=== PATIENT | female | born 1975 | race Two or more races ===

== ENCOUNTER 2020-02-24 19:11 | Inpatient (IN) | payer OTHER ==
[2020-02-24 19:23] VITALS: BMI 25.8
[2020-02-24] MEDS ORDERED: SODIUM CHLORIDE 1,000 ML IV STA (19:23)
[2020-02-24] MEDS ORDERED: ACETAMINOPHEN 1000 MG/100 ML VIAL (NON FORMULARY) IVPB ONE (19:23)
--- NOTE | 2020-02-24 19:23 | PDOC ---
Rapid Medical Evaluation Chief Complaint: Respiratory Time Seen by Provider: 02/24/20 19:20 Medical Evaluation: 02/24/20 19:20 Pt presents for evaluation of fever, body aches and headaches for one week. States had a COVID antibody test that was negative. Recent travel to [place] via car. Exam: VSS, appears uncomfortable Orders: labs, COVID Pt to proceed to the ER for further evaluation Discharge Disposition - Diagnosis Fever Qualifiers: Fever type: unspecified Qualified Code(s): R50.9 - Fever, unspecified - Referrals - Patient Instructions - Post Discharge Activity
--- NOTE | 2020-02-24 20:14 | PDOC ---
History of Present Illness - General Chief Complaint: Vomiting/Diarrhea Stated Complaint: FEVER Time Seen by Provider: 02/24/20 19:20 History Source: Patient Exam Limitations: No Limitations - History of Present Illness Initial Comments: 02/24/20 20:14 44y previously healthy F presenting w 5d subjective fever, dry cough, nausea/vomiting, body aches, mild epigastric pain, headaches, diarrhea. Taking tylenol w/o relief. Had recent negative COVID antibody test. Recent travel to [place], no known covid exposures. Denies chest pain, SOB, dysuria, rectal bleeding. Past History - Medical History Allergies/Adverse Reactions: Allergies Allergy/AdvReac Type Severity Reaction Status Date / Time No Known Allergies Allergy Verified 02/24/20 19:23 COPD: No - Psycho-Social/Smoking History Smoking History: Never smoked - Substance Abuse Hx (Audit-C & DAST Scrn) How often the patient has a drink containing alcohol: Never Score: In Men: 4 or > Positive; In Women: 3 or > Positive: 0 Screen Result (Pos requires Nsg. Audit-10AR): Negative Review of Systems - Review of Systems Constitutional: Yes: Chills, Fever HEENTM: No: Eye Pain, Nose Congestion Respiratory: Yes: Cough. No: Shortness of Breath Cardiac (ROS): No: Chest Pain, Palpitations ABD/GI: Yes: Diarrhea, Nausea, Vomiting. No: Abdominal Distended : No: Burning, Dysuria Musculoskeletal: Yes: Muscle Pain. No: Back Pain, Joint Pain Integumentary: No: Bruising, Flushing Neurological: Yes: Headache. No: Seizure Psychiatric: No: Anxiety, Depression Endocrine: No: Intolerance to Cold, Intolerance to Heat Hematologic/Lymphatic: No: Anemia, Blood Clots *Physical Exam - Vital Signs Last Vital Signs Temp Pulse Resp BP Pulse Ox 98.2 F 83 18 107/66 100 02/24/20 19:19 02/24/20 19:19 02/24/20 19:19 02/24/20 19:19 02/24/20 19:19 - Physical Exam General Appearance: Yes: Nourished, Appropriately Dressed, Mild Distress HEENT: positive: EOMI, LYLE, Normal Voice, Hearing Grossly Normal. negative: Scleral Icterus (R), Scleral Icterus (L), Nasal Congestion Respiratory/Chest: positive: Lungs Clear, Normal Breath Sounds. negative: Chest Tender, Respiratory Distress, Crackles, Rales, Rhonchi, Stridor, Wheezing Cardiovascular: positive: Regular Rhythm, Regular Rate, S1, S2. negative: Edema, Murmur Gastrointestinal/Abdominal: positive: Normal Bowel Sounds, Tender (mild epigastric), Flat, Soft. negative: Organomegaly Musculoskeletal: negative: CVA Tenderness (R), CVA Tenderness (L) Extremity: negative: Pedal Edema Integumentary: positive: Normal Color, Dry, Warm Neurologic: positive: Fully Oriented, Alert, Normal Mood/Affect, Normal Response, Responsive. negative: Confused, Disoriented ED Treatment Course - LABORATORY CBC & Chemistry Diagram: 02/24/20 20:25 02/24/20 20:25 Medical Decision Making - Medical Decision Making 02/24/20 20:53 CXR - yas fluffy infiltrates EKG - NSR, HR 67, QTc 414, no ST changes --- 44y previously healthy F presenting w 5d subjective fever, dry cough, ashlee sea/vomiting, body aches, mild epigastric pain, headaches, diarrhea. Likely covid PNA/gastroenteritis. No evidence of UTI Desat down to 93% RA while ambulating. Given 1L NS, tylenol, zofran, pepcid, azithromcyin, rocephin. Started 2L NC Admit m/s hospitalist for suspected covid, acute respiratory failure requiring supplemental O2 PCP Magdalene Discharge - Discharge Information Problems reviewed: Yes Clinical Impression/Diagnosis: Suspected 2019 novel coronavirus infection Condition: Stable - Follow up/Referral Referrals: Ashley Pillai [Primary Care Provider] - CallBack Reminder: covid results - Patient Discharge Instructions - Post Discharge Activity
[2020-02-24] MEDS ORDERED: ONDANSETRON 4 MG/2 ML VIAL IVPUSH ONE (20:25)
[2020-02-24] MEDS ORDERED: FAMOTIDINE 20 MG/50 ML IVPB 20 MG/50 ML MG IVPB ONE ×2 (20:27→20:53)
[2020-02-24] MEDS ORDERED: ACETAMINOPHEN INJECTION 100 ML IVPB ONE (20:53)
[2020-02-24 21:05] LABS: BASO % 0.2 % (0-2.0); HEMATOCRIT 30.7 % (32.4-45.2); HEMOGLOBIN 9.6 GM/dL (10.7-15.3); LYMPH % 12.3 % (8-40); MCH 21.7 pg (25.7-33.7); MCHC 31.2 g/dl (32.0-36.0); MEAN CELL VOLUME 69.5 fl (80-96); MEAN PLT VOLUME 9.9 fl (7.5-11.1); MONO % 6.6 % (3.8-10.2); NEUT % 80.9 % (42.8-82.8); PLATELET COUNT 169 K/MM3 (134-434); RBC 4.41 M/mm3 (3.60-5.2); WHITE BLOOD COUNT 4.3 K/mm3 (4.0-10.0)
[2020-02-24 21:23] LABS: ALBUMIN 3.3 g/dl (3.4-5.0); BILIRUBIN,TOTAL 0.2 mg/dL (0.2-1); BLOOD UREA NITROGEN 6.5 mg/dL (7-18); CALCIUM 8.3 mg/dL (8.5-10.1); CREATININE 0.6 mg/dL (0.55-1.3); POTASSIUM 4.1 mmol/L (3.5-5.1); TOT PROT 6.7 g/dl (6.4-8.2)
[2020-02-24 21:47] LABS: ANISOCYTOSIS 2+; MACROCYTOSIS 0; OVALOCYTE 1+; PLATELET ESTIMATE NORMAL; TEAR DROP CELLS 1+
--- NOTE | 2020-02-24 22:48 | PDOC ---
Documentation entered by Ondina Yadav SCRIBE, acting as scribe for Sheridan Garcia MD. Sheridan Garcia MD: This documentation has been prepared by the Leif giles Brenda, SCRIBE, under my direction and personally reviewed by me in its entirety. I confirm that the documentation accurately reflects all work, treatment, procedures, and medical decision making performed by me. Attending Attestation - Resident Resident Name: Kofi Guerrero - ED Attending Attestation I have performed the following: I have examined & evaluated the patient, The case was reviewed & discussed with the resident, I agree w/resident's findings & plan, Exceptions are as noted - HPI HPI: 02/24/20 20:28 The patient is a 44 year old female with no PMH of who presents to the ED for evaluation of 5 days of subjective fever, vomitting, diarrhea, body aches and a dry cough. The patient is also endorsing epigastric abdominal pain and headaches. She reports recently visiting [place] but denies any sick contacts. Notes taking Tylenol around the clock (last at 12:00pm), to no relief. Allergies: NKA - Physicial Exam PE: 02/24/20 22:02 GENERAL: A/Ox4, mild distress, answers questions appropriately, wearing hijab, appears uncomfortable, accompanied by significant other at bedside CARDIOVASCULAR: regular and a bit tachycardic, no MGR, strong peripheral pulses, capillary refill <2 seconds, extremities wwp, no edema HEENT: no posterior pharyngeal erythema or tonsillar swelling or exudates LUNGS/RESPIRATORY: tachypneic, lungs a bit course without focal decreased breath sounds GI/ABDOMEN: symmetric [id number], normoactive BS, soft, no ttp, no midline pulsatile masses : no CVA tenderness MSK/EXTREMITIES: no muscle atrophy, no acute deformity SKIN: warm and dry, no pallor, no jaundice, no rash, no pathologic-appearing bruising, no skin breakdown, no cuts, no lesions NEUROLOGICAL: GCS 15, CN II-XII grossly intact, 5/5 strength proximally and distally, no facial droop - Medical Decision Making 02/24/20 22:46 Patient presents with fever, SOB, cough, c/f COVID-19 in the setting of COVID-19 pandemic. Initial Vital Signs Temp Pulse Resp BP Pulse Ox 98.2 F 83 18 107/66 100 02/24/20 19:19 02/24/20 19:19 02/24/20 19:19 02/24/20 19:19 02/24/20 19:19 DDX IBNLT: likely COVID-19 with c/f sequelae. Likely gastroenteritis. Superimposed bacterial PNA considered as well. COPD/asthma/CHF exacerbation or other underlying lung disease possible contributing factor. Less likely influenza, bronchitis, other viral URI, laryngitis, tracheitis, etc. W/U ordered: Labs as noted below, COVID-19 swab, EKG, CXR EKG: Reviewed; results as noted in ECG Review section. CXR: Diffuse bilateral patchy consolidations without focal or lobar consolidation. Laboratory Tests 02/24/20 02/24/20 02/24/20 20:25 20:25 20:25 WBC 4.3 RBC 4.41 Hgb 9.6 L Hct 30.7 L MCV 69.5 L MCH 21.7 L MCHC 31.2 L RDW 21.0 H Plt Count 169 MPV 9.9 Absolute Neuts (auto) 3.4 Neutrophils % 80.9 Lymphocytes % 12.3 Monocytes % 6.6 Eosinophils % 0.0 Basophils % 0.2 Nucleated RBC % 0 Hypochromia 1+ Platelet Estimate Normal Polychromasia 1+ Poikilocytosis 1+ Anisocytosis 2+ Microcytosis 1+ Macrocytosis 0 Tear Drop Cells 1+ Ovalocytes 1+ Sodium 138 Potassium 4.1 Chloride 104 Carbon Dioxide 26 Anion Gap 9 BUN 6.5 L Creatinine 0.6 Est GFR (CKD-EPI)AfAm 126.69 Est GFR (CKD-EPI)NonAf 109.31 Random Glucose 95 Calcium 8.3 L Ferritin 37.8 Total Bilirubin 0.2 AST 26 ALT 19 Alkaline Phosphatase 84 LD Total 282 H C-Reactive Protein 9.5 H Total Protein 6.7 Albumin 3.3 L Urine Color Urine Appearance Urine pH Ur Specific [place] Urine Protein Urine Glucose (UA) Urine Ketones Urine Blood Urine Nitrite Urine Bilirubin Urine Urobilinogen Ur Leukocyte Esterase Urine HCG, Qual COVID-19 (BRANDEN) Detected H 02/24/20 22:37 WBC RBC Hgb Hct MCV MCH MCHC RDW Plt Count MPV Absolute Neuts (auto) Neutrophils % Lymphocytes % Monocytes % Eosinophils % Basophils % Nucleated RBC % Hypochromia Platelet Estimate Polychromasia Poikilocytosis Anisocytosis Microcytosis Macrocytosis Tear Drop Cells Ovalocytes Sodium Potassium Chloride Carbon Dioxide Anion Gap BUN Creatinine Est GFR (CKD-EPI)AfAm Est GFR (CKD-EPI)NonAf Random Glucose Calcium Ferritin Total Bilirubin AST ALT Alkaline Phosphatase LD Total C-Reactive Protein Total Protein Albumin Urine Color Yellow Urine Appearance Clear Urine pH 7.0 Ur Specific [place] 1.008 L Urine Protein Negative Urine Glucose (UA) Negative Urine Ketones Negative Urine Blood Negative Urine Nitrite Negative Urine Bilirubin Negative Urine Urobilinogen 0.2 Ur Leukocyte Esterase Negative Urine HCG, Qual Negative COVID-19 (BRANDEN) 02/24/20 23:26 New baseline hypoxia, persistent respiratory distress despite tx. The Pt is high-risk for home decompensation and is unsafe for discharge at this time. They require further hospital observation, workup, and treatment. Microblog sent to [facility] for admission. Patient high risk for COVID-19 transmission and noted as such on admission orders and in pass-down. Heart Score/ECG Review #1 Sinus rhythm, rate 67, normal axis and intervals, no ischemic ST-T changes Discharge - Discharge Information Problems reviewed: Yes Clinical Impression/Diagnosis: Suspected 2019 novel coronavirus infection Condition: Guarded - Admission Yes - Follow up/Referral - Patient Discharge Instructions - Post Discharge Activity
[2020-02-24 22:50] LABS: URINE APPEARANCE CLEAR; URINE BILIRUBIN NEGATIVE (NEGATIVE); URINE COLOR YELLOW; URINE GLUCOSE (UA) NEGATIVE (NEGATIVE); URINE KETONE NEGATIVE (NEGATIVE); URINE LEUK ESTERASE NEGATIVE (NEGATIVE); URINE NITRITE NEGATIVE (NEGATIVE); URINE PROTEIN NEGATIVE (NEGATIVE); URINE UROBILINOGEN 0.2 mg/dL (0.2-1.0)
[2020-02-24 22:56] LABS: HCG,QUALITATIVE URINE Negative
[2020-02-24] MEDS ORDERED: CEFTRIAXONE 1 GM in DEXTROSE 5%-WATER - 100 ML IVPB ONE (23:57)
[2020-02-24] MEDS ORDERED: AZITHROMYCIN IVPB 500 MG in DEXTROSE 5%-WATER - 250 ML IVPB ONE (23:57)
[2020-02-24] MEDS ORDERED: CEFTRIAXONE 1 GM/50 ML BAG ONE (23:59)
[2020-02-25] MEDS ORDERED: AZITHROMYCIN IVPB 500 MG/250 ML BAG IVPB ONE
--- NOTE | 2020-02-25 02:04 | HP ---
CHIEF COMPLAINT: PCP: HISTORY OF PRESENT ILLNESS: 44F w/ pmh of chronic anemia(takes iron), presenting to [facility] for complaint for all over bodyc aches w/a bitemporal MORGAN x2wk. Worsening pain. Has had poor PO intake. Has seen PCP, and given antibiotics(azithromycin). Was negative for COVID Ab on 02/18/20. Denies SOB, cough, fever. Has some chest pain, having trouble taking deep breaths. Has SOB with walking and going up stairs. Has had diarrhea, multiple times a day, usually after eating. Has had Tmax 38C at home. Has preserved sense of taste and smell. Low appetite. Denies sick contacts. Travelled to [place] three weeks prior, stayed one week. Was attending a wedding ~100 ppl, rarely wore a mask and did not stay 6ft apart. 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 Did not get flu shot. C-scope at 18s y/o w/o notable findings. Translation provided by adult son at bedside. ER course was notable for: (1) 93% pulse ox on ambulation (2) Hgb 9.6(MCV 69.5), ferritin 37.8, LDH 282 (3) UA: neg (4) CXR: unoffical read bibasilar infiltrates..COVID? Recent Travel: 8hr drive to [place] PAST MEDICAL HISTORY: as above PAST SURGICAL HISTORY: abdominoplasty, csection Social History: Smoking: Hookah 1-2x weekly, last 2ys Alcohol: Drugs: Allergies No Known Allergies Allergy (Verified 02/24/20 19:23) HOME MEDICATIONS: REVIEW OF SYSTEMS CONSTITUTIONAL: fever, chills, weakness, malaise, loss of appetite Absent: diaphoresis, weight change HEENT: Absent: rhinorrhea, nasal congestion, throat pain, throat swelling, difficulty swallowing, mouth swelling, ear pain, eye pain, visual changes CARDIOVASCULAR: Absent: chest pain, syncope, palpitations, irregular heart rate, lightheadedness, peripheral edema RESPIRATORY: nonproductive cough, SOB, MCRAE Absent: orthopnea, wheezing, stridor, hemoptysis GASTROINTESTINAL: nausea, vomiting, diarrhea Absent: abdominal pain, abdominal distension, constipation, melena, hematochezia GENITOURINARY: Absent: dysuria, frequency, urgency, hesitancy, hematuria, flank pain, genital pain MUSCULOSKELETAL: muscle aches, joint pain Absent:joint swelling, back pain, neck pain SKIN: Absent: rash, itching, pallor HEMATOLOGIC/IMMUNOLOGIC: Absent: easy bleeding, easy bruising, lymphadenopathy, frequent infections ENDOCRINE: Absent: unexplained weight gain, unexplained weight loss, heat intolerance, cold intolerance NEUROLOGIC: Absent: headache, focal weakness or paresthesias, dizziness, unsteady gait, seizure, mental status changes, bladder or bowel incontinence PSYCHIATRIC: Absent: anxiety, depression, suicidal or homicidal ideation, hallucinations. PHYSICAL EXAMINATION Vital Signs - 24 hr 02/24/20 19:19 Temperature 98.2 F Pulse Rate 83 Respiratory 18 Rate Blood Pressure 107/66 O2 Sat by Pulse 100 Oximetry (%) GENERAL: Awake, alert, and fully oriented. Lethargic appearing HEAD: Normal with no signs of trauma. EYES: sclera anicteric, conjunctival pallor EARS, NOSE, THROAT: Ears normal, nares patent, oropharynx clear without exudat es. Moist mucous membranes. NECK: Normal range of motion, supple without lymphadenopathy, JVD, or masses. LUNGS: coarse basilar crackles bilaterally. No wheezes. No accessory muscle use. Speaking full sentences on RA. HEART: Regular rate and rhythm, normal S1 and S2 without murmur, rub or gallop. ABDOMEN: Soft, nontender, not distended, normoactive bowel sounds, no guarding, no rebound, no masses. No hepatomegaly or splenomegaly. MUSCULOSKELETAL: Normal range of motion at all joints. No bony deformities or tenderness. No CVA tenderness. UPPER EXTREMITIES: 2+ pulses, warm, well-perfused. No cyanosis. No clubbing. No peripheral edema. LOWER EXTREMITIES: 2+ pulses, warm, well-perfused. No calf tenderness. No peripheral edema. NEUROLOGICAL: Normal speech. Laboratory Results - last 24 hr 02/24/20 02/24/20 02/24/20 20:25 20:25 22:37 WBC 4.3 RBC 4.41 Hgb 9.6 L Hct 30.7 L MCV 69.5 L MCH 21.7 L MCHC 31.2 L RDW 21.0 H Plt Count 169 MPV 9.9 Absolute Neuts (auto) 3.4 Neutrophils % 80.9 Lymphocytes % 12.3 Monocytes % 6.6 Eosinophils % 0.0 Basophils % 0.2 Nucleated RBC % 0 Hypochromia 1+ Platelet Estimate Normal Polychromasia 1+ Poikilocytosis 1+ Anisocytosis 2+ Microcytosis 1+ Macrocytosis 0 Tear Drop Cells 1+ Ovalocytes 1+ Sodium 138 Potassium 4.1 Chloride 104 Carbon Dioxide 26 Anion Gap 9 BUN 6.5 L Creatinine 0.6 Est GFR (CKD-EPI)AfAm 126.69 Est GFR (CKD-EPI)NonAf 109.31 Random Glucose 95 Calcium 8.3 L Ferritin 37.8 Total Bilirubin 0.2 AST 26 ALT 19 Alkaline Phosphatase 84 LD Total 282 H Total Protein 6.7 Albumin 3.3 L Urine Color Yellow Urine Appearance Clear Urine pH 7.0 Ur Specific [place] 1.008 L Urine Protein Negative Urine Glucose (UA) Negative Urine Ketones Negative Urine Blood Negative Urine Nitrite Negative Urine Bilirubin Negative Urine Urobilinogen 0.2 Ur Leukocyte Esterase Negative Urine HCG, Qual Negative ASSESSMENT/PLAN: 44F w/ pmh of chronic anemia(takes iron), presenting to [facility] for complaint for all over body aches w/a bitemporal MORGAN, nonproductive cough with fever. Has had recent travel to [place] to attend a wedding where she did adhere to social distancing. Desaturating to 93% w/ ambulation. Imaging showing b/l inflammation. Admitted for possible COVID #hypoxia w/ mild respiratory distress --possibly 2/2 COVID and/or b/l PNA > 93% pulse ox on ambulation > CXR: final read pending - abx regimen: azithro + ceftriaxone - albuterol PRN - zinc, vit C - O2 PRN for goal >90% - fu covid inflammatory markers(d-dimer, LDH, ferritin) - ID consult(Familia): --recs pending #chronic microcytic anemia --pt has intermittently been on iron supplementation throughout her life > Hgb 9.6(MCV 69.5) - fu iron panel FEN - no mIVF - CLD and ADAT DVT PPX - lovenox --consider A/C if elevated COVID markers Visit type - Emergency Visit Emergency Visit: Yes ED Registration Date: 02/24/20 Care time: The patient presented to the Emergency Department on the above date and was hospitalized for further evaluation of their emergent condition. - New Patient This patient is new to me today: Yes Date on this admission: 02/25/20 - Critical Care Critical Care patient: No ATTENDING PHYSICIAN STATEMENT I saw and evaluated the patient. I reviewed the resident's note and discussed the case with the resident. I agree with the resident's findings and plan as documented. SUBJECTIVE: OBJECTIVE: ASSESSMENT AND PLAN:
[2020-02-25] MEDS ORDERED: IBUPROFEN 600 MG TABLET (FP) PO ONE ×3 (03:02→03:21)
--- NOTE | 2020-02-25 03:13 | PN ---
Teaching Attending Note Name of Resident: Marty Smith ATTENDING PHYSICIAN STATEMENT I saw and evaluated the patient. I reviewed the resident's note and discussed the case with the resident. I agree with the resident's findings and plan as documented. SUBJECTIVE: 44 years old F with PMH of chronic anemia presented to hospital with generalized body aches, headache, exertional SOb and fatigue. Has SOB with walking and going up stairs. She travelled to [place] 3 weeks ago to attend wedding. She also c/o water diarrhea multiple times a day she also c/o dry cough for the same duration. Last Vital Signs Temp Pulse Resp BP Pulse Ox 98.2 F 83 18 107/66 100 02/24/20 19:19 02/24/20 19:19 02/24/20 19:19 02/24/20 19:19 02/24/20 19:19 OBJECTIVE: GENERAL: Awake, alert, and fully oriented, in no acute distress. HEAD: Normal with no signs of trauma. EYES: Pupils equal, round and reactive to light, extraocular movements intact, sclera anicteric, conjunctiva clear. No lid lag. EARS, NOSE, THROAT: Ears normal, nares patent, oropharynx clear without exudates. Moist mucous membranes. NECK: Normal range of motion, supple without lymphadenopathy, JVD, or masses. LUNGS: Breath sounds equal, clear to auscultation bilaterally. No wheezes, and no crackles. No accessory muscle use. HEART: Regular rate and rhythm, normal S1 and S2 without murmur, rub or gallop. ABDOMEN: Soft, nontender, not distended, normoactive bowel sounds, no guarding, no rebound, no masses. No hepatomegaly or splenomegaly. MUSCULOSKELETAL: Normal range of motion at all joints. No bony deformities or tenderness. No CVA tenderness. UPPER EXTREMITIES: 2+ pulses, warm, well-perfused. No cyanosis. No clubbing. No peripheral edema. LOWER EXTREMITIES: 2+ pulses, warm, well-perfused. No calf tenderness. No peripheral edema. NEUROLOGICAL: Cranial nerves II-XII intact. Normal speech. Normal gait. PSYCHIATRIC: Cooperative. Good eye contact. Appropriate mood and affect. SKIN: Warm, dry, normal turgor, no rashes or lesions noted, normal capillary refill. ASSESSMENT AND PLAN: suspected COVID-19 infection with b/l pneumonia microcytic anemia Admit to floor oxygen therapy as needed azithromycin PO covid markers CRP, LDH D dimer, urine antigens, troponin, CPK FOBT iron pannel tyelonol PRN fever ]DVt ppx
[2020-02-25 06:47] LABS: HEMATOCRIT 29.4 % (32.4-45.2); HEMOGLOBIN 9.1 GM/dL (10.7-15.3); MCH 21.3 pg (25.7-33.7); MCHC 30.8 g/dl (32.0-36.0); MEAN PLT VOLUME 9.4 fl (7.5-11.1); PLATELET COUNT 74 K/MM3 (134-434); RBC 4.26 M/mm3 (3.60-5.2); RDW 20.9 % (11.6-15.6); WHITE BLOOD COUNT 3.9 K/mm3 (4.0-10.0)
[2020-02-25 07:07] LABS: ANION GAP 6 MMOL/L (8-16); BLOOD UREA NITROGEN 4.9 mg/dL (7-18); CALCIUM 8.3 mg/dL (8.5-10.1); CHLORIDE 104 mmol/L (98-107); CO2 26 mmol/L (21-32); CREATININE 0.5 mg/dL (0.55-1.3); GLUCOSE,RANDOM 91 mg/dL (74-106); LDH 244 U/L (84-246); MAGNESIUM 2.1 mg/dL (1.8-2.4); PHOSPHOROUS 2.9 mg/dL (2.5-4.9); POTASSIUM 3.8 mmol/L (3.5-5.1); SODIUM 136 mmol/L (136-145)
--- NOTE | 2020-02-25 08:40 | PN ---
Progress Note, Physician Chief Complaint: sob, headache and body aches, for a few days and diarroea, History of Present Illness: hISTORY OF PRESENT ILLNESS: 44F w/ pmh of chronic anemia(takes iron), presenting to [facility] for complaint for all over body aches w/a bitemporal MORGAN x2wk. and sob on going upstairs, Worsening body pain. Has had poor PO intake. tmax at home 100.4F,no cough, lives in a private house in [place], stays indoors, and no outdoor activity,no yard work, went to wedding for a week, 2-[address] days [address], and 3 days stayed there, stayed at a hotel, no outdoor activity, no hiking, son noticed a small red spot on the hand, thought of it as a bite, but pt didnt c/o itching or pain, or bite, Has seen PCP, and given antibiotics(azithromycin). Was negative for COVID Ab on 02/18/20. Denies SOB, cough, fever. Has some chest pain, having trouble taking deep breaths. Has had diarrhea, multiple times a day, usually after eating. no blood in stool, - Current Medication List Current Medications: Active Medications Albuterol Sulfate (Ventolin -) 2 mg PO QID SHAWNA Ascorbic Acid (Vitamin C -) 250 mg PO DAILY SHAWNA Azithromycin (Zithromax -) 250 mg PO DAILY SHAWNA Enoxaparin Sodium (Lovenox -) 40 mg SQ DAILY SHAWNA Zinc Sulfate (Orazinc -) 220 mg PO BID SHAWNA - Objective Vital Signs: Vital Signs Temperature 98.9 F 02/25/20 06:54 Pulse Rate 75 02/25/20 04:00 Respiratory Rate 18 02/25/20 04:00 Blood Pressure 111/63 02/25/20 04:00 O2 Sat by Pulse Oximetry (%) 95 02/25/20 04:00 Constitutional: Yes: Well Nourished, No Distress Eyes: Yes: Conjunctiva Clear, EOM Intact HENT: Yes: Atraumatic, Normocephalic Neck: Yes: Supple Cardiovascular: Yes: Regular Rate and Rhythm Respiratory: Yes: Regular, CTA Bilaterally Gastrointestinal: Yes: Normal Bowel Sounds, Soft, Other (non tender to palpation,) Edema: No Peripheral Pulses WNL: Yes Labs: CBC, BMP 02/25/20 05:02/25/20 05:20 Impression/Plan Impression/Plan: 44F w/ pmh of chronic anemia(takes iron), presenting to [facility] for complaint for all over body aches w/a bitemporal MORGAN, nonproductive cough with fever. Desaturating to 93% w/ ambulation. Imaging showing b/l inflammation. Admitted for possible COVID 1)hypoxia w/ mild respiratory distress --possibly 2/2 COVID and/or b/l PNA > 93% pulse ox on ambulation > CXR:A single view of the chest reveals a weak inspiration with some congestive changes and possible early bibasilar infiltrates with prominent mediastinum. The bones and soft tissues are intact. will check the repeat cxr, prominent mediastinum, abx regimen: azithro , - albuterol PRN - zinc, vit C - O2 PRN for goal >90% - fu covid inflammatory markers(d-dimer, LDH, ferritin) - ID consult(Familia): --recs pending case discussed with ID, and will get ct head stat for new onset headache, and also will get the ct CHest for pneumonia congestion, tick work up, diarroea stool cheney, #, low platelts, and also low wbc, and get tick cheney, and monitor the cbc and if needed and continues to drop the count, will get heme consult, #chronic microcytic anemia -- check retic count, > Hgb 9.6(MCV 69.5) - fu iron panel DVT PPX -has low platelts will hold off the A/C, and will fu, scd, Visit type - Emergency Visit Emergency Visit: No - New Patient This patient is new to me today: Yes Date on this admission: 02/25/20 - Critical Care Critical Care patient: No - Discharge Referral Referred to [facility] No
[2020-02-25] MEDS ORDERED: PT OWN MED DRAWER 7, Y5N ONE ×4 (08:56→21:39)
[2020-02-25] MEDS: ALBUTEROL SO4 2 MG TABLET PO SCH ×4 (09:22→21:43)
[2020-02-25] MEDS: AZITHROMYCIN 250 MG TABLET PO SCH (09:22)
[2020-02-25] MEDS: ZINC SULFATE 220 MG CAPSULE (FP) PO SCH ×2 (09:22→21:43)
[2020-02-25] MEDS ORDERED: ENOXAPARIN NA (PORCINE) 40 MG/0.4 ML DISP.SYRIN SQ SCH (10:00)
[2020-02-25] MEDS ORDERED: ASCORBIC ACID 250 MG TABLET (FP) PO SCH (10:00)
[2020-02-25 11:15] LABS: IRON SERUM 11 ug/dL (50-175); TOTAL IRON BINDING CAPACITY 302 ug/dL (250-450)
--- NOTE | 2020-02-25 12:04 | CON.ID ---
Consult Consult Specialty:: infectious disease Referred by:: hospitalist Reason for Consultation:: fever - History of Present Illness Chief Complaint: headaches, myalgia, diarrhea History of Present Illness: 44 yo with chronic anemia- went to [place] 3 weeks ago for a wedding- drove there with her son and drove back with him has had myalgias, headaches, diarrhea -nonbloody since then (3 or 4 times daily) denies cough denies tick exposure denies insect bites was seen by pmd and had she went to [place]- two 1/2 weeks ago by car- trip took a week, wedding was 3 days- 3 or 4 days later low grade fevers, headaches started with fever, diarrhea started later [place] saw her PMD 02/17- covid ab negative, gave her antibiotic- azithromycin- three tabs had a televisit 02/20- fluids encouraged lived with her family- everyone is well mostly stays home - youngest is 13, no babies no pets taking iron at home no family members with covid lives in [facility] no gardening no rodent exposure - History Source History Provided By: Patient, Medical Record Limitations to Obtaining History: No Limitations - Past Medical History Heme/Onc: Yes: Anemia - Past Surgical History Past Surgical History: Yes: Additional Surgical History: abdominoplasty - Alcohol/Substance Use Hx Alcohol Use: No History of Substance Use: reports: None - Smoking History Smoking history: Current every day smoker (hookah) Have you smoked in the past 12 months: Yes - Social History Usual Living Arrangement: With Spouse (and family- 5 kids) ADL: Independent Place of : Other ([facility]) History of Recent Travel: Yes ([place]) Home Medications - Allergies Allergies/Adverse Reactions: Allergies Allergy/AdvReac Type Severity Reaction Status Date / Time No Known Drug Allergies Allergy Verified 02/25/20 12:22 algae Allergy Uncoded 02/25/20 12:24 - Home Medications Home Medications: Ambulatory Orders Zolpidem Tartrate [Ambien] 5 mg PO HS 02/26/20 Ascorbic Acid [Vitamin C -] 1,000 mg PO BID #60 tablet 02/27/20 Zinc Sulfate [Orazinc -] 220 mg PO BID #60 capsule 02/27/20 Cholecalciferol (Vitamin D3) [Vitamin D3 -] 1,000 unit PO DAILY #30 tab 02/28/20 Family Medical History Family History: Denies Review of Systems - Review of Systems Constitutional: reports: Fever, Lethargy, Loss of Appetite, Malaise Eyes: reports: No Symptoms HENT: reports: No Symptoms. denies: Throat Pain Neck: reports: No Symptoms Cardiovascular: reports: No Symptoms. denies: Chest Pain, Edema Respiratory: denies: Cough, SOB Gastrointestinal: reports: No Symptoms Genitourinary: reports: No Symptoms Breasts: reports: No Symptoms Reported Musculoskeletal: reports: No Symptoms Integumentary: reports: No Symptoms Neurological: reports: Headache Physical Exam Vital Signs: Vital Signs Temperature 98.9 F 02/25/20 10:00 Pulse Rate 60 02/25/20 10:00 Respiratory Rate 17 02/25/20 10:00 Blood Pressure 101/58 L 02/25/20 10:00 O2 Sat by Pulse Oximetry (%) 95 02/25/20 10:00 Constitutional: Yes: Well Nourished, No Distress, Calm Eyes: Yes: Conjunctiva Clear, EOM Intact HENT: Yes: Atraumatic, Normocephalic. No: Pharyngeal Erythema Neck: Yes: Supple. No: Decreased ROM Cardiovascular: Yes: Regular Rate and Rhythm Respiratory: Yes: Regular, Diminished (at bases) Gastrointestinal: Yes: Normal Bowel Sounds, Soft. No: Tenderness, Tenderness, Epigastrium, Tenderness, Rebound ...Rectal Exam: Yes: Deferred Breast(s): Yes: WNL Musculoskeletal: Yes: WNL Extremities: Yes: WNL Edema: No Peripheral Pulses WNL: Yes Integumentary: Yes: WNL. No: Rash Neurological: Yes: Alert, Oriented Psychiatric: Yes: Alert, Oriented Labs: CBC, BMP 02/25/20 05:20 02/25/20 05:20 Imaging - Results Chest X-ray: Report Reviewed Problem List - Problems (1) Fever Code(s): R50.9 - FEVER, UNSPECIFIED (2) Headache Code(s): R51 - HEADACHE (3) Myalgia Code(s): M79.10 - MYALGIA, UNSPECIFIED SITE (4) Diarrhea Code(s): R19.7 - DIARRHEA, UNSPECIFIED (5) Suspected 2019 novel coronavirus infection Code(s): Z20.828 - CONTACT W AND EXPOSURE TO OTH VIRAL COMMUNICABLE DISEASES Assessment/Plan history from patient and chart and son fever/myalgia, headache/diarrhea-?bacterial, ?viral-no lymphocytosis to suggest ebv or cmv- no pharyngitis or abnl lfts , ?atypical, ?covid probable covid 10 illness blood cultres, stool legionella urinary antigen chest ct and head ct ordered -willhelpl confirm covid [address] rocephin//zith tick serology ordered -lfts normal, son reports no tick exposures blood for parasites ordered IV hydration covid pcr CPK f/u labs [place] serology isolation
[2020-02-25] MEDS ORDERED: CEFTRIAXONE 1 GM in DEXTROSE 5%-WATER - 50 ML IVPB SCH (12:30)
[2020-02-25] MEDS ORDERED: cefTRIAXone SODIUM 1 GM VIAL ONE (12:34)
[2020-02-25] MEDS ORDERED: DEXTROSE 5%-WATER - 50 ML IVPB ONE (12:34)
[2020-02-25] MEDS: ACETAMINOPHEN 325 MG TABLET (FP) PO PRN ×2 (12:50→18:52)
[2020-02-25] MEDS: guaiFENesin 200 MG/10 ML 10 ML UNIT-DOSE CUPS PO PRN (16:32)
[2020-02-25] MEDS: DEXTROSE 5%-0.45% SALINE 1,000 ML IV SCH (17:15)
[2020-02-25] MEDS ORDERED: KETOROLAC TROMETHAMINE 30 MG/1 ML VIAL IVPUSH ONE (19:33)
[2020-02-25] MEDS ORDERED: IBUPROFEN 800 MG/8 ML IJ IVPB ONE (19:35)
--- NOTE | 2020-02-25 20:39 | PN ---
Progress Note (short form) - Note Progress Note: Paged by RN that patient with headache. Patient endorsing 10/10 headache. Also c/o pain upon inspiration. Patient had CT Head earlier which was negative. Patient likely here for COVID-19. Chest CT consistent with ground glass opacities and likely COVID Pneumonitis per Radiology. Inflammatory markers elevated except Ferritin. COVID-19 PCR pending. Consider addition of Lovenox 1 mg/kg BID. However, patient hemoglobin of 9.1. May also consider addition of Amilcar roids. Patient currently saturating at 95%, resting HR 69. Not on any supplemental oxygen. Low suspicion for PE. Ibuprofen for Headache. Headache unremitting with Tylenol. Day team to reassess in am.
[2020-02-25] MEDS: MELATONIN 5 MG TABLETS PO SCH (21:43)
[2020-02-25] MEDS: ASCORBIC ACID 500 MG TABLET (FP) PO SCH (21:43)
[2020-02-26] MEDS ORDERED: ACETAMINOPHEN/CAFFEINE/BUTALBITAL 1 TAB PO ONE (00:10)
[2020-02-26] MEDS: guaiFENesin 200 MG/10 ML 10 ML UNIT-DOSE CUPS PO PRN ×3 (02:50→21:08)
[2020-02-26] MEDS: DEXTROSE 5%-0.45% SALINE 1,000 ML IV SCH ×2 (06:09→17:38)
[2020-02-26] MEDS: ACETAMINOPHEN 325 MG TABLET (FP) PO PRN ×3 (06:24→21:09)
[2020-02-26 07:51] LABS: BASO % 0.3 % (0-2.0); EOS % 0.1 % (0-4.5); HEMATOCRIT 28.3 % (32.4-45.2); MCH 21.9 pg (25.7-33.7); MCHC 31.8 g/dl (32.0-36.0); MEAN CELL VOLUME 69.1 fl (80-96); MEAN PLT VOLUME 8.8 fl (7.5-11.1); MONO % 11.6 % (3.8-10.2); PLATELET COUNT 51 K/MM3 (134-434); RDW 20.7 % (11.6-15.6); WHITE BLOOD COUNT 3.4 K/mm3 (4.0-10.0)
[2020-02-26 07:53] LABS: ALBUMIN 3.1 g/dl (3.4-5.0); BILIRUBIN,TOTAL 0.3 mg/dL (0.2-1); BLOOD UREA NITROGEN 4.4 mg/dL (7-18); CALCIUM 8.7 mg/dL (8.5-10.1); CREATININE 0.4 mg/dL (0.55-1.3); POTASSIUM 3.9 mmol/L (3.5-5.1); TOT PROT 6.5 g/dl (6.4-8.2)
[2020-02-26] MEDS ORDERED: DEXTROSE 5%-WATER 100 ML IVPB ONE (09:11)
[2020-02-26] MEDS ORDERED: CEFTRIAXONE 2 GM in DEXTROSE 5%-WATER 100 ML IVPB SCH (10:00)
[2020-02-26] MEDS ORDERED: CEFTRIAXONE 1 GM in DEXTROSE 5%-WATER - 50 ML IVPB SCH (10:00)
[2020-02-26] MEDS: ALBUTEROL SO4 2 MG TABLET PO SCH ×4 (10:10→21:09)
[2020-02-26] MEDS: ASCORBIC ACID 500 MG TABLET (FP) PO SCH ×2 (10:11→21:08)
[2020-02-26] MEDS: AZITHROMYCIN 250 MG TABLET PO SCH (10:11)
[2020-02-26] MEDS: ZINC SULFATE 220 MG CAPSULE (FP) PO SCH ×2 (10:11→21:08)
[2020-02-26] MEDS ORDERED: PT OWN MED DRAWER 7, Y5N ONE ×3 (10:31→21:07)
--- NOTE | 2020-02-26 12:19 | PN ---
Progress Note (short form) - Note Progress Note: headache resolved continues with frequent diarrhea +cough ambulated- oxygen sat of 95% Vital Signs Period Temp Pulse Resp BP Sys/Cartwright Pulse Ox Last 24 Hr 98.1 F-99.2 F 62-85 16-20 102-131/57-74 95-100 cor-rrr lungs bilateral rhonchi abdomen- soft,nt ext no edema no rash CBC, BMP 02/26/20 06:20 02/26/20 06:20 Laboratory Tests 02/24/20 02/25/20 02/25/20 20:25 05:20 05:20 D-Dimer 565 H LD Total 282 H 244 Creatine Kinase C-Reactive Protein 02/26/20 02/26/20 02/26/20 06:20 06:20 06:20 D-Dimer 507 H LD Total Creatine Kinase 19 L C-Reactive Protein 8.[address] negative chest ct c/w covid plneumonia COVID PCR POSITIVE a/p covid pneumonia with diarrhea, headache improved, myalgia improved fevers resolved will d/c antiiboitcs as cultures negative and covid positive not hypoxic- will observe closely for need to start meds f/u cultures thrombocytopenia viral? , meds? will observe son contacted and informed of positive covid pcr and need for entire family to quarantine- will inform infection control nurse in am as family lives in the [place]- d/w pulmonary d/w hospitalist who will also followup with family Problem List - Problems (1) Fever Code(s): R50.9 - FEVER, UNSPECIFIED (2) Headache Code(s): R51 - HEADACHE (3) Myalgia Code(s): M79.10 - MYALGIA, UNSPECIFIED SITE
--- NOTE | 2020-02-26 12:32 | CON.PULM ---
Consult Consult Specialty:: PULMONARY Referred by:: NERI Reason for Consultation:: COVID PNEUMONITIS - History of Present Illness Chief Complaint: SOB/COUGH/STERNAL PAIN WITH DEEP BREATH History of Present Illness: 44F w smokes hookah 2-3X/week pmh of chronic anemia(takes iron), presenting to [facility] for complaint for all over bodyc aches w/a bitemporal MORGAN x2wk. Worsening pain. Has had poor PO intake. Has seen PCP, and given antibiotics(azithromycin). Was negative for COVID Ab on 02/18/20. Denies SOB, cough, fever. Has some chest pain, having trouble taking deep breaths. Has SOB with walking and going up stairs. Has had diarrhea, multiple times a day, usually after eating. Has had Tmax 38C at home. Has preserved sense of taste and smell. Low appetite. Denies sick contacts. Travelled to [place] three weeks prior, stayed one week. Was attending a wedding ~100 ppl, rarely wore a mask and did not stay 6ft apart. 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 Did not get flu shot. 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 Cardio/Vascular: No: AFIB Pulmonary: No: COPD, Pneumonia, Previously Intubated Gastrointestinal: No: Cancer Hepatobiliary: No: Cirrhosis Renal/: No: Renal Failure ...: No Heme/Onc: Yes: Anemia Psych: No: Addictions Rheumatology: No: Fibromyalgia ENT: No: Allergic Rhinitis Endocrine: No: Diabetes Mellitus - Past Surgical History Past Surgical History: Yes: Additional Surgical History: abdominoplasty - Alcohol/Substance Use Hx Alcohol Use: No History of Substance Use: reports: None - Smoking History Smoking history: Current every day smoker (hookah) Have you smoked in the past 12 months: Yes If you are a former smoker, when did you quit?: smokes hookah - Social History Usual Living Arrangement: With Spouse (and family- 5 kids) ADL: Independent Place of : Other ([facility]/lived in [place]) History of Recent Travel: Yes ([place]) Home Medications - Allergies Allergies/Adverse Reactions: Allergies Allergy/AdvReac Type Severity Reaction Status Date / Time No Known Drug Allergies Allergy Verified 02/25/20 12:22 algae Allergy Uncoded 02/25/20 12:24 - Home Medications Home Medications: Ambulatory Orders NK [No Known Home Medication] 02/25/20 Family Medical History Family History: Unremarkable Review of Systems - Review of Systems Constitutional: reports: Fever, Malaise, Unintentional Wgt. Loss Eyes: denies: Blind Spots HENT: denies: Difficult Swallowing Neck: denies: Decreased ROM Cardiovascular: reports: Chest Pain Respiratory: reports: Cough, Exercise Intolerance, SOB, SOB on Exertion. denies : Hemoptysis, Wheezing Gastrointestinal: reports: Diarrhea, Nausea Genitourinary: reports: No Symptoms Breasts: reports: No Symptoms Reported Musculoskeletal: reports: No Symptoms Integumentary: reports: No Symptoms Neurological: reports: No Symptoms Endocrine: reports: No Symptoms Hematology/Lymphatic: reports: No Symptoms Psychiatric: reports: No Symptoms Physical Exam Vital Sings: Vital Signs Temperature 98.5 F 02/26/20 09:05 Pulse Rate 62 02/26/20 09:05 Respiratory Rate 20 02/26/20 09:05 Blood Pressure 108/66 02/26/20 09:05 O2 Sat by Pulse Oximetry (%) 97 02/26/20 09:05 Constitutional: Yes: Calm Eyes: Yes: EOM Intact HENT: Yes: Normocephalic Neck: Yes: Trachea Midline Cardiovascular: Yes: Regular Rate and Rhythm Respiratory: Yes: Diminished. No: Wheezes Gastrointestinal: Yes: Abdomen, Obese Edema: No Neurological: Yes: Alert Labs: CBC, BMP 02/26/20 06:20 02/26/20 06:20 CRP 8.6 D-DIMER 507 24% LYMPHOCYTES FERRITIN 45 CRP 8.6 Imaging - Results Chest X-ray: Report Reviewed, Image Reviewed Cat Scan: Report Reviewed, Image Reviewed Problem List - Problems (1) Pneumonia due to COVID-19 virus Code(s): U07.1 - COVID POSITIVE; J12.89 - OTHER VIRAL PNEUMONIA (2) Gastroenteritis due to COVID-19 virus Code(s): U07.1 - COVID POSITIVE; A08.39 - OTHER VIRAL ENTERITIS (3) Headache Code(s): R51 - HEADACHE (4) Myalgia Code(s): M79.10 - MYALGIA, UNSPECIFIED SITE Assessment/Plan COVID + WITH BILATERAL PNEUMONITIS FE DEF ANEMIA ON IRON REPLACEMENT PATIENT IS NOT WEARING O2 AND SATURATING WELL (97%) CRP IS LESS THAN 10/LDH IS NORMAL D-DIMER 507 CR 0.4 AGREE WITH CURRENT LINE OF TREATMENT WOULD ADD LOVENOX 40MG SQ DAILY WOULD HOLD STEROIDS/REMDESIVIR AND PLASMA TRANSFUSION AT THE MOMENT MONITOR CLINICAL SIGNS AND INFLAMMATORY MARKERS MONITOR O2 SAT ON AMBULATION (WITHIN ROOM) WOULD HAVE LOW THRESHOLD FOR INSTITUTING THERAPY IF CLINICAL DETERIOATION OCCURS MONITOR CLOSELY Jessica CHACKO MD
--- NOTE | 2020-02-26 13:58 | PN ---
Progress Note, Physician History of Present Illness: Patient seen and exained at bedside. Endorses had 4 episodes of diarrhea since waking up this morning. She denies nausea or vomiting but doesn't have an appetite. States has occasional chills and sweats. Denies fever chest pain or SOB. Nurse put pulse ox on and had her stand up and for a few seconds her saturation dropped to mid 80s but when she was ambulating saturation at mid 90s per RN. COVID-19 BRANDEN positive. - Current Medication List Current Medications: Active Medications Acetaminophen (Tylenol -) 650 mg PO Q6H PRN PRN Reason: Fever Or Pain Last Admin: 02/26/20 12:37 Dose: 650 mg Documented by: Albuterol Sulfate (Ventolin -) 2 mg PO QID [facility] Last Admin: 02/26/20 13:41 Dose: 2 mg Documented by: Ascorbic Acid (Vitamin C -) 1,000 mg PO BID [facility] Last Admin: 02/26/20 10:11 Dose: 1,000 mg Documented by: Guaifenesin (Robitussin -) 10 ml PO Q6H PRN PRN Reason: COUGH Last Admin: 02/26/20 12:37 Dose: 10 ml Documented by: Dextrose/Sodium Chloride (D5-1/2ns -) 1,000 mls @ 75 mls/hr IV ASDIR [facility] Last Admin: 02/26/20 06:09 Dose: 75 mls/hr Documented by: Melatonin (Melatonin) 10 mg PO HS [facility] Last Admin: 02/25/20 21:43 Dose: 10 mg Documented by: Zinc Sulfate (Orazinc -) 220 mg PO BID [facility] Last Admin: 02/26/20 10:11 Dose: 220 mg Documented by: - Objective Vital Signs: Vital Signs Temperature 98.6 F 02/26/20 13:41 Pulse Rate 80 02/26/20 13:41 Respiratory Rate 18 02/26/20 13:41 Blood Pressure 113/64 02/26/20 13:41 O2 Sat by Pulse Oximetry (%) 98 02/26/20 13:41 Constitutional: Yes: No Distress, Other (Ill appearing) Eyes: Yes: Other (conjunctival pallor present) HENT: Yes: Other (moist mucous membranes). No: Thrush Cardiovascular: Yes: Regular Rate and Rhythm Respiratory: Yes: Rales (bilaterally) Gastrointestinal: Yes: Normal Bowel Sounds, Soft, Tenderness (very mild spigastric tenderness) Extremities: Yes: WNL Edema: No Neurological: Yes: Alert, Oriented Psychiatric: Yes: Alert, Oriented Labs: CBC, BMP 02/26/20 06:20 02/26/20 06:20 - ....Imaging Chest X-ray: Report Reviewed, Image Reviewed Cat Scan: Report Reviewed, Image Reviewed (Head and chest CT reviewed) Impression/Plan Impression/Plan: 44F w/ pmh of chronic anemia(takes iron), presenting to [facility] for complaint for all over body aches w/a bitemporal MORGAN, diarrhea, anorexia, and nonproductive cough with fever. Imaging showing b/l infiltrates. COVID-19 positive. Acute hypoxemic respiratory [id number] BRANDEN positive CRP trending down no nebulizers can consider steroids pulm and ID consult noted and appreciated. If patient starts to destaurate will start medical treatment suppotive care for now zinc, vit C O2 PRN for goal >90% CRP trending down Tic born illnesses work up per ID Diarrhea-likely viral i;llness secondary to COVID-19 Stool studies pending-C. diff negative urine antigen negative Hold chemical DVT PPx as patients platelets dropped to 51,000 today likely from sepsis f/u stool studies Pancytopenia leukopenia, throbocytopenia and microcytic anemia thrombocytopenia and leukopenia are likely secondary to sepsis Irone studies Tic borne illnesses work up per ID Trend CBC no indication for transfusion at this time DVT PPX SCDs for now Visit type - Emergency Visit Emergency Visit: Yes ED Registration Date: 02/24/20 Care time: The patient presented to the Emergency Department on the above date and was hospitalized for further evaluation of their emergent condition. - New Patient This patient is new to me today: Yes Date on this admission: 02/26/20 - Critical Care Critical Care patient: No
--- NOTE | 2020-02-26 17:32 | EKG ---
Test Reason : Blood Pressure : / mmHG Vent. Rate : 067 BPM Atrial Rate : 067 BPM P-R Int : 138 ms QRS Dur : 080 ms QT Int : 392 ms P-R-T Axes : 029 010 048 degrees QTc Int : 414 ms NORMAL SINUS RHYTHM NORMAL ECG NO PREVIOUS ECGS AVAILABLE Confirmed by MD Tena, Alexander ([id number]) on 02/26/2020 5:31:50 PM Referred By: Confirmed By:Alexander Madsen MD
[2020-02-26] MEDS: MELATONIN 5 MG TABLETS PO SCH (21:08)
[2020-02-27] MEDS ORDERED: ONDANSETRON 4 MG TABLET PO ONE (01:20)
[2020-02-27] MEDS ORDERED: ONDANSETRON *ODT* 4 MG TABLET SL ONE (01:30)
[2020-02-27 07:16] LABS: INR 1.08 (0.83-1.09); PROTHROMBIN TIME (PATIENT) 12.7 SEC (9.7-13.0)
[2020-02-27 07:19] LABS: ACTIVATED PTT 29.5 SECONDS (25.2-36.5)
[2020-02-27 07:33] LABS: ALBUMIN 2.9 g/dl (3.4-5.0); ALK PHOS 72 U/L (45-117); ANION GAP 8 MMOL/L (8-16); BILIRUBIN,TOTAL < 0.1 mg/dL (0.2-1); CALCIUM 8.1 mg/dL (8.5-10.1); CHLORIDE 110 mmol/L (98-107); CO2 23 mmol/L (21-32); CREATININE 0.3 mg/dL (0.55-1.3); GLUCOSE,RANDOM 93 mg/dL (74-106); IRON SERUM 15 ug/dL (50-175); POTASSIUM 3.8 mmol/L (3.5-5.1); SGOT/AST 22 U/L (15-37); SGPT/ALT 22 U/L (13-61); SODIUM 142 mmol/L (136-145); TOTAL IRON BINDING CAPACITY 283 ug/dL (250-450)
[2020-02-27 07:39] LABS: BLOOD UREA NITROGEN 2.9 mg/dL (7-18)
[2020-02-27 07:40] LABS: HEMATOCRIT 27.3 % (32.4-45.2); HEMOGLOBIN 8.5 GM/dL (10.7-15.3); MCH 21.5 pg (25.7-33.7); MCHC 31.1 g/dl (32.0-36.0); MEAN CELL VOLUME 69.3 fl (80-96); MEAN PLT VOLUME 9.4 fl (7.5-11.1); RBC 3.94 M/mm3 (3.60-5.2); RDW 20.8 % (11.6-15.6)
[2020-02-27] MEDS ORDERED: PT OWN MED DRAWER 7, Y5N ONE ×4 (10:19→17:06)
[2020-02-27] MEDS: ZINC SULFATE 220 MG CAPSULE (FP) PO SCH ×2 (10:24→22:12)
[2020-02-27] MEDS: ASCORBIC ACID 500 MG TABLET (FP) PO SCH ×2 (10:24→22:13)
[2020-02-27] MEDS: ALBUTEROL SO4 2 MG TABLET PO SCH ×5 (10:25→23:26)
[2020-02-27] MEDS: ACETAMINOPHEN 325 MG TABLET (FP) PO PRN ×3 (10:30→22:14)
[2020-02-27 11:23] LABS: PLATELET COUNT 81 K/MM3 (134-434)
[2020-02-27 11:28] LABS: ANISOCYTOSIS 1+; MACROCYTOSIS 0; OVALOCYTE 1+; PLATELET ESTIMATE DECREASED; TEAR DROP CELLS 1+
--- NOTE | 2020-02-27 12:51 | PN ---
Progress Note (short form) - Note Progress Note: PULMONARY Still some chest tightness. No fevers recorded. c/o neck pain. Inflammatory markers trending down. Vital Signs Period Temp Pulse Resp BP Sys/Cartwright Pulse Ox Last 24 Hr 98.0 F-99 F 62-80 18-20 112-131/64-83 94-99 Gen: NAD at rest Heart: RRR Lung: scattered rales Abd: soft, nontender Ext: no edema CBC, BMP 02/27/20 05:32 02/27/20 05:32 Active Medications Acetaminophen (Tylenol -) 650 mg PO Q6H PRN PRN Reason: Fever Or Pain Last Admin: 02/27/20 10:30 Dose: 650 mg Documented by: Albuterol Sulfate (Ventolin -) 2 mg PO QID [facility] Last Admin: 02/27/20 10:25 Dose: 2 mg Documented by: Ascorbic Acid (Vitamin C -) 1,000 mg PO BID [facility] Last Admin: 02/27/20 10:24 Dose: 1,000 mg Documented by: Guaifenesin (Robitussin -) 10 ml PO Q6H PRN PRN Reason: COUGH Last Admin: 02/26/20 21:08 Dose: 10 ml Documented by: Melatonin (Melatonin) 10 mg PO HS [facility] Last Admin: 02/26/20 21:08 Dose: 10 mg Documented by: Zinc Sulfate (Orazinc -) 220 mg PO BID [facility] Last Admin: 02/27/20 10:24 Dose: 220 mg Documented by: A/P COVID19 Pneumonitis Anemia Thrombocytopenia - pain control - pulse oximetry monitoring - monitor CBC - trend inflammatory markers - DVT prophylaxis - can monitor as outpt from pulmonary standpoint if not hypoxic with ambulating
--- NOTE | 2020-02-27 13:18 | PN ---
Progress Note (short form) - Note Progress Note: headache improved still with diarrhea when she eats nausea last night cough Vital Signs Period Temp Pulse Resp BP Sys/Cartwright Pulse Ox Last 24 Hr 98.0 F-99 F 62-72 18-20 112-131/68-83 94-99 cor-rrr lung scattered rhonchi abd soft,nt ext no edema no rash CBC, BMP 02/27/20 05:32 02/27/20 05:32 Microbiology 02/25/20 13:10 Blood - Peripheral Venous Blood Culture - Preliminary NO GROWTH OBTAINED AFTER 48 HOURS, INCUBATION TO CONTINUE FOR 3 DAYS. 02/25/20 13:15 Blood - Peripheral Venous Blood Culture - Preliminary NO GROWTH OBTAINED AFTER 48 HOURS, INCUBATION TO CONTINUE FOR 3 DAYS. 02/25/20 22:30 Stool Vibrio Culture - Final NO GROWTH OF VIBRIO SPECIES OBTAINED 02/25/20 22:30 Stool Escherichia coli 0157 Culture - Final NO GROWTH OF E COLI 0157 OBTAINED 02/25/20 22:30 Stool Gram Stain - Final 02/25/20 22:30 Stool Clostridioides difficile Antigen - Final 02/25/20 22:30 Stool Clostridioides difficile Toxin Assay - Final 02/24/20 22:37 Urine - Urine Clean Catch Urine Culture - Final NO GROWTH OBTAINED 02/25/20 14:05 Urine For Antigen Detection Legionella Antigen - Final 02/25/20 14:05 Urine For Antigen Detection Streptococcus pneumoniae Antigen (M - Final 02/25/20 13:10 Blood - Peripheral Venous Blood Parasites Smear - Final head ct negative chest ct c/w covid plneumonia COVID PCR POSITIVE a/p covid pneumonia, headache improved, myalgia improved fevers resolved thrombocytopenia resolving, lymphocytosis noted inflammatory markes trending down clinically improving but still with diarrhea consider advancing diet spoke with infection control nurse- she will contact [facility] regarding reporting patients positive covid results Problem List - Problems (1) Fever Code(s): R50.9 - FEVER, UNSPECIFIED (2) Headache Code(s): R51 - HEADACHE (3) Myalgia Code(s): M79.10 - MYALGIA, UNSPECIFIED SITE
--- NOTE | 2020-02-27 15:14 | PN ---
Physical Exam: SUBJECTIVE: Patient seen and examined. still having chest tightness when she coughs. headaches are improving. OBJECTIVE: Patient is a 44 year old female with a significant past medical history of chronic anemia, current hookah smoker. Patient presents to the ED on 02/24/2020 with complaints of body aches, headaches, diarrhea and shortness of breath. Patient negative for covid on 02/18/2020. She reported attending a wedding in [place] 3 weeks ago (100 people) and found to be positive for covid on this admission. Patient seen and examined at bedside. Endorses had 5 episodes of diarrhea this morning. She denies nausea or vomiting but doesn't have an appetite. Patient is tolerating room air. A pre and post was ordered but she reported feeling too weak to ambulate. Diet advanced today. discussed with ID, if tolerates diet and thrombocytopenia improving, can be discharged home tomorrow. patient aware she must isolate x 14 days. Vital Signs Period Temp Pulse Resp BP Sys/Cartwright Pulse Ox Last 24 Hr 98.0 F-99 F 62-72 18-20 112-131/68-83 94-99 GENERAL: The patient is awake, alert, and fully oriented, weak appearing HEAD: Normal with no signs of trauma. EYES: PERRL, extraocular movements intact, sclera anicteric, conjunctiva clear. No ptosis. ENT: Ears normal, nares patent, oropharynx clear without exudates, moist mucous membranes. NECK: Trachea midline, full range of motion, supple. LUNGS: Breath sounds equal, diminished at the bases. tolerating room air HEART: Regular rate and rhythm, S1, S2 without murmur, rub or gallop. ABDOMEN: Soft, nontender, nondistended, normoactive bowel sounds EXTREMITIES: no edema. NEUROLOGICAL: Normal speech, gait not observed. PSYCH: Normal mood, normal affect. Laboratory Results - last 24 hr 02/27/20 02/27/20 02/27/20 05:32 05:32 05:32 WBC 4.0 RBC 3.94 Hgb 8.5 L Hct 27.3 L MCV 69.3 L MCH 21.5 L MCHC 31.1 L RDW 20.8 H Plt Count 81 L D MPV 9.4 Absolute Neuts (auto) 1.9 Neutrophils % No Result Required. Neutrophils % (Manual) 49.5 Band Neutrophils % 1.0 Lymphocytes % No Result Required. Lymphocytes % (Manual) 41.2 H D Monocytes % (Manual) 6 Eosinophils % (Manual) 0.0 D Basophils % (Manual) 0.0 Myelocytes % (Man) 0 Promyelocytes % (Man) 0 Blast Cells % (Manual) 0 Nucleated RBC % 2 H Metamyelocytes 0 Hypochromia 0 Platelet Estimate Decreased Platelet Comment Present Polychromasia 0 Poikilocytosis 1+ Anisocytosis 1+ Microcytosis 1+ Macrocytosis 0 Tear Drop Cells 1+ Ovalocytes 1+ Zoë Cells 1+ PT with INR 12.70 INR 1.08 PTT (Actin FS) 29.5 Sodium 142 Potassium 3.8 Chloride 110 H Carbon Dioxide 23 Anion Gap 8 BUN 2.9 L* Creatinine 0.3 L Est GFR (CKD-EPI)AfAm 159.14 Est GFR (CKD-EPI)NonAf 137.31 Random Glucose 93 Calcium 8.1 L Iron 15 L TIBC 283 Iron Saturation 5 L Unsaturated IBC 268 Ferritin 37.1 Total Bilirubin < 0.1 L AST 22 ALT 22 Alkaline Phosphatase 72 C-Reactive Protein 4.0 H Total Protein 6.0 L Albumin 2.9 L Active Medications Generic Name Dose Route Start Last Admin Trade Name Freq PRN Reason Stop Dose Admin Acetaminophen 650 mg 02/25/20 11:01 02/27/20 10:30 Tylenol - PO 650 mg Q6H PRN Administration Fever Or Pain Albuterol Sulfate 2 mg 02/25/20 10:00 02/27/20 14:44 Ventolin - PO 2 mg QID [facility] Administration Amino Acids 30 ml 02/27/20 17:30 Prosource No Carb Liquid Pkt PO BID@0800,1730 [facility] Ascorbic Acid 1,000 mg 02/25/20 22:00 02/27/20 10:24 Vitamin C - PO 1,000 mg BID SHAWNA Administration Guaifenesin 10 ml 02/25/20 15:25 02/26/20 21:08 Robitussin - PO 10 ml Q6H PRN Administration COUGH Melatonin 10 mg 02/25/20 22:00 02/26/20 21:08 Melatonin PO 10 mg HS SHAWNA Administration Zinc Sulfate 220 mg 02/25/20 10:00 02/27/20 10:24 Orazinc - PO 220 mg BID SH[facility]NA Administration ASSESSMENT/PLAN: Problem List - Problems (1) COVID-19 Assessment/Plan: covid detected per serology 02/24/2020 patient with symptoms of malaise, body aches, headaches, poor appetite on zinc, vitamin c iv antibiotics discontinued inflammatory markers trending down ID following advance diet, monitor diarreha and check electrolytes likely d/c tomorrow it tolerating diet and diarrhea lessens, negative for c diff patient must isolate 14 days per EVE recommendations hold off on anticoagulation secondary to thrombocytopenia airborne/droplet precautions Code(s): U07.1 - COVID POSITIVE (2) Thrombocytopenia Assessment/Plan: initally presented with platelets of 169 with down trend to the 50s, now improving in the 80s. repeat in a.m. Code(s): D69.6 - THROMBOCYTOPENIA, UNSPECIFIED (3) Headache Assessment/Plan: likelly secondary to covid infection. tylenol prn. Code(s): R51 - HEADACHE (4) DVT prophylaxis Assessment/Plan: SCDs, no a/c due to thrombocytopenia Code(s): Z29.9 - ENCOUNTER FOR PROPHYLACTIC MEASURES, UNSPECIFIED Visit type - Emergency Visit Emergency Visit: Yes ED Registration Date: 02/24/20 Care time: The patient presented to the Emergency Department on the above date and was hospitalized for further evaluation of their emergent condition. - New Patient This patient is new to me today: Yes Date on this admission: 02/27/20 - Critical Care Critical Care patient: No - Discharge Referral Referred to [facility] Med P.C.: No
[2020-02-27] MEDS: AMINO ACIDS/PROTEIN HYDROLYS 30 ML LIQUID.PKT PO SCH (17:14)
[2020-02-27] MEDS: MELATONIN 5 MG TABLETS PO SCH (22:12)
[2020-02-28] MEDS ORDERED: ONDANSETRON 4 MG/2 ML VIAL IVPUSH ONE (01:07)
[2020-02-28] MEDS ORDERED: PT OWN MED DRAWER 7, Y5N ONE ×4 (01:19→12:50)
[2020-02-28 07:33] LABS: BASO % 0.3 % (0-2.0); EOS % 0.8 % (0-4.5); HEMATOCRIT 27.4 % (32.4-45.2); HEMOGLOBIN 8.6 GM/dL (10.7-15.3); LYMPH % 24.1 % (8-40); MCH 21.3 pg (25.7-33.7); MCHC 31.3 g/dl (32.0-36.0); MEAN CELL VOLUME 68.2 fl (80-96); MONO % 11.1 % (3.8-10.2); NEUT % 63.7 % (42.8-82.8); RBC 4.02 M/mm3 (3.60-5.2); RDW 20.8 % (11.6-15.6); WHITE BLOOD COUNT 4.2 K/mm3 (4.0-10.0)
[2020-02-28] MEDS: AMINO ACIDS/PROTEIN HYDROLYS 30 ML LIQUID.PKT PO SCH (08:45)
--- NOTE | 2020-02-28 08:56 | PN ---
Progress Note, Physician History of Present Illness: 44 year old female with a significant past medical history of chronic anemia, current hookah smoker. Patient presents to the ED on 02/24/2020 with complaints of body aches, headaches, diarrhea and shortness of breath. Patient negative for covid on 02/18/2020. She reported attending a wedding in [place] 3 weeks ago (100 people) and found to be positive for covid on this admission. - Current Medication List Current Medications: Active Medications Acetaminophen (Tylenol -) 650 mg PO Q6H PRN PRN Reason: Fever Or Pain Last Admin: 02/27/20 22:14 Dose: 650 mg Documented by: Albuterol Sulfate (Ventolin -) 2 mg PO QID [facility] Last Admin: 02/27/20 23:26 Dose: Not Given Documented by: Amino Acids (Prosource No Carb Liquid Pkt) 30 ml PO BID@0800,1730 [facility] Last Admin: 02/27/20 17:14 Dose: 30 ml Documented by: Ascorbic Acid (Vitamin C -) 1,000 mg PO BID [facility] Last Admin: 02/27/20 22:13 Dose: 1,000 mg Documented by: Guaifenesin (Robitussin -) 10 ml PO Q6H PRN PRN Reason: COUGH Last Admin: 02/26/20 21:08 Dose: 10 ml Documented by: Melatonin (Melatonin) 10 mg PO HS [facility] Last Admin: 02/27/20 22:12 Dose: 10 mg Documented by: Zinc Sulfate (Orazinc -) 220 mg PO BID [facility] Last Admin: 02/27/20 22:12 Dose: 220 mg Documented by: - Objective Vital Signs: Vital Signs Temperature 97.9 F 02/28/20 05:35 Pulse Rate 64 02/28/20 05:35 Respiratory Rate 18 02/28/20 05:35 Blood Pressure 121/79 02/28/20 05:35 O2 Sat by Pulse Oximetry (%) 97 02/28/20 08:15 Labs: CBC, BMP 02/28/20 05:30 02/27/20 05:32 INR, PTT INR 1.08 (0.83-1.09) 02/27/20 05:32 Problem List - Problems (1) Prophylactic measure Code(s): Z29.9 - ENCOUNTER FOR PROPHYLACTIC MEASURES, UNSPECIFIED (2) COVID-19 Code(s): U07.1 - COVID POSITIVE (3) Gastroenteritis due to COVID-19 virus Code(s): U07.1 - COVID POSITIVE; A08.39 - OTHER VIRAL ENTERITIS (4) Thrombocytopenia Code(s): D69.6 - THROMBOCYTOPENIA, UNSPECIFIED
[2020-02-28] MEDS: ASCORBIC ACID 500 MG TABLET (FP) PO SCH (09:32)
[2020-02-28] MEDS: ZINC SULFATE 220 MG CAPSULE (FP) PO SCH (09:32)
[2020-02-28] MEDS: ALBUTEROL SO4 2 MG TABLET PO SCH ×2 (09:32→13:23)
[2020-02-28] MEDS: ACETAMINOPHEN 325 MG TABLET (FP) PO PRN (09:34)
[2020-02-28] MEDS ORDERED: traMADol HCL 50 MG TABLET PO ONE (10:07)
--- NOTE | 2020-02-28 10:07 | PN ---
Progress Note (short form) - Note Progress Note: PULMONARY Still some chest tightness, diarrhea, headache. No fevers recorded. Saturating well on room air. Vital Signs Period Temp Pulse Resp BP Sys/Cartwright Pulse Ox Last 24 Hr 97.9 F-98.9 F 64-74 18-20 121-132/72-87 95-97 Gen: NAD at rest Heart: RRR Lung: scattered rales Abd: soft, nontender Ext: no edema CBC, BMP 02/28/20 05:30 02/27/20 05:32 Active Medications Acetaminophen (Tylenol -) 650 mg PO Q6H PRN PRN Reason: Fever Or Pain Last Admin: 02/28/20 09:34 Dose: 650 mg Documented by: Albuterol Sulfate (Ventolin -) 2 mg PO QID [facility] Last Admin: 02/28/20 09:32 Dose: 2 mg Documented by: Amino Acids (Prosource No Carb Liquid Pkt) 30 ml PO BID@0800,1730 [facility] Last Admin: 02/28/20 08:45 Dose: 30 ml Documented by: Ascorbic Acid (Vitamin C -) 1,000 mg PO BID [facility] Last Admin: 02/28/20 09:32 Dose: 1,000 mg Documented by: Guaifenesin (Robitussin -) 10 ml PO Q6H PRN PRN Reason: COUGH Last Admin: 02/26/20 21:08 Dose: 10 ml Documented by: Melatonin (Melatonin) 10 mg PO HS [facility] Last Admin: 02/27/20 22:12 Dose: 10 mg Documented by: Zinc Sulfate (Orazinc -) 220 mg PO BID [facility] Last Admin: 02/28/20 09:32 Dose: 220 mg Documented by: A/P COVID19 Pneumonitis Anemia Thrombocytopenia - pain control - DVT prophylaxis - can d/c home from pulmonary standpoint, instructed to return if breathing worsens
[2020-02-28 10:24] LABS: ANISOCYTOSIS 1+; MACROCYTOSIS 0; OVALOCYTE 1+; TEAR DROP CELLS 1+
[2020-02-28 10:28] LABS: PLATELET ESTIMATE DECREASED
[2020-02-28 12:35] LABS: BILIRUBIN,TOTAL 0.7 mg/dL (0.2-1); BLOOD UREA NITROGEN 4.3 mg/dL (7-18); CALCIUM 8.7 mg/dL (8.5-10.1); CREATININE 0.4 mg/dL (0.55-1.3); MAGNESIUM 2.2 mg/dL (1.8-2.4); POTASSIUM 3.7 mmol/L (3.5-5.1); TOT PROT 6.3 g/dl (6.4-8.2)
[2020-02-28] MEDS ORDERED: APIXABAN 5 MG TABLET PO SCH (13:00)
[2020-02-28 13:51] LABS: BASO % 0.4 % (0-2.0); EOS % 0.7 % (0-4.5); HEMATOCRIT 29.1 % (32.4-45.2); HEMOGLOBIN 9.2 GM/dL (10.7-15.3); LYMPH % 19.5 % (8-40); MCH 21.8 pg (25.7-33.7); MCHC 31.7 g/dl (32.0-36.0); MEAN CELL VOLUME 68.8 fl (80-96); MEAN PLT VOLUME 8.7 fl (7.5-11.1); MONO % 9.6 % (3.8-10.2); NEUT % 69.8 % (42.8-82.8); PLATELET COUNT 240 K/MM3 (134-434); RBC 4.23 M/mm3 (3.60-5.2); RDW 21.1 % (11.6-15.6); WHITE BLOOD COUNT 4.9 K/mm3 (4.0-10.0)
[2020-02-28 14:28] VITALS: BP 117/74; PULSE 74; TEMP 98
--- NOTE | 2020-02-28 14:32 | DS ---
Physical Exam: SUBJECTIVE: Patient seen and examined 44 year old female with a significant past medical history of chronic anemia, current hookah smoker. Patient presents to the ED on 02/24/2020 with complaints of body aches, headaches, diarrhea and shortness of breath. Patient negative for covid on 02/18/2020. She reported attending a wedding in [place] 3 weeks ago (100 people) and found to be positive for covid on this admission. Platlets decreased and now improved. Cleared for discharge to home with home isolation x 14 days OBJECTIVE: Vital Signs Period Temp Pulse Resp BP Sys/Cartwright Pulse Ox Last 24 Hr 97.9 F-98.9 F 64-74 16-20 117-132/72-87 95-97 PHYSICAL EXAM GENERAL: The patient is awake, alert, and fully oriented, in no acute distress. HEAD: Normal with no signs of trauma. EYES: PERRL, extraocular movements intact, sclera anicteric, conjunctiva clear. ENT: Ears normal, nares patent, oropharynx clear without exudates, moist mucous membranes. NECK: Trachea midline, full range of motion, supple. LUNGS: Breath sounds equal, clear to auscultation bilaterally, no wheezes, no crackles, no accessory muscle use. HEART: Regular rate and rhythm, S1, S2 without murmur, rub or gallop. ABDOMEN: Soft, nontender, nondistended, normoactive bowel sounds, no guarding, no rebound, no hepatosplenomegaly, no masses. EXTREMITIES: 2+ pulses, warm, well-perfused, no edema. NEUROLOGICAL: Cranial nerves II through XII grossly intact. Normal speech, gait not observed. PSYCH: Normal mood, normal affect. SKIN: Warm, dry, normal turgor, no rashes or lesions noted. LABS Laboratory Results - last 24 hr 02/25/20 02/27/20 02/28/20 13:10 05:32 05:30 WBC 4.2 RBC 4.02 Hgb 8.6 L Hct 27.4 L MCV 68.2 L MCH 21.3 L MCHC 31.3 L RDW 20.8 H Plt Count MPV No Result Required. Absolute Neuts (auto) 2.7 Neutrophils % 63.7 Lymphocytes % 24.1 Monocytes % 11.1 H Eosinophils % 0.8 D Basophils % 0.3 Nucleated RBC % 0 Hypochromia 0 Platelet Estimate Decreased Platelet Comment Present Polychromasia 1+ Poikilocytosis 2+ Anisocytosis 1+ Microcytosis 1+ Macrocytosis 0 Spherocytes 1+ Tear Drop Cells 1+ Ovalocytes 1+ Acanthocytes (Spur) 1+ Sodium 142 Potassium 3.8 Chloride 110 H Carbon Dioxide 23 Anion Gap 8 BUN 2.9 L* Creatinine 0.3 L Est GFR (CKD-EPI)AfAm 159.14 Est GFR (CKD-EPI)NonAf 137.31 Random Glucose 93 Calcium 8.1 L Magnesium Iron 15 L TIBC 283 Iron Saturation 5 L Unsaturated IBC 268 Ferritin 37.1 Total Bilirubin < 0.1 L AST 22 ALT 22 Alkaline Phosphatase 72 Troponin I < 0.02 C-Reactive Protein 4.0 H Total Protein 6.0 L Albumin 2.9 L Lyme Screen IgG & IgM <0.91 02/28/20 02/28/20 05:30 13:20 WBC 4.9 RBC 4.23 Hgb 9.2 L Hct 29.1 L MCV 68.8 L MCH 21.8 L MCHC 31.7 L RDW 21.1 H Plt Count 240 D MPV 8.7 Absolute Neuts (auto) 3.4 Neutrophils % 69.8 Lymphocytes % 19.5 Monocytes % 9.6 Eosinophils % 0.7 Basophils % 0.4 Nucleated RBC % 0 Hypochromia Platelet Estimate Platelet Comment Polychromasia Poikilocytosis Anisocytosis Microcytosis Macrocytosis Spherocytes Tear Drop Cells Ovalocytes Acanthocytes (Spur) Sodium 140 Potassium 3.7 Chloride 108 H Carbon Dioxide 25 BUN 4.3 L Creatinine 0.4 L Est GFR (CKD-EPI)AfAm 144.77 Est GFR (CKD-EPI)NonAf 124.91 Random Glucose 79 Calcium 8.7 Magnesium 2.2 Iron TIBC Iron Saturation Unsaturated IBC Ferritin Total Bilirubin 0.7 AST 38 H ALT 42 Alkaline Phosphatase 85 Troponin I C-Reactive Protein Total Protein 6.3 L Albumin 3.0 L Lyme Screen IgG & IgM HOSPITAL COURSE: Date of Admission:02/24/20 Date of Discharge: 02/28/20 (1) COVID-19 Assessment/Plan: covid detected per serology 02/24/2020 patient with symptoms of malaise, body aches, headaches, poor appetite c/w zinc, vitamin on discharge iv antibiotics completed ID followed during stay patient must isolate 14 days per [facility] recommendations hold off on anticoagulation secondary to thrombocytopenia airborne/droplet precautions Code(s): U07.1 - COVID POSITIVE (2) Thrombocytopenia Assessment/Plan: initally presented with platelets of 169 with down trend to the 50s, now improving in the 80s. Increased back to 250 Code(s): D69.6 - THROMBOCYTOPENIA, UNSPECIFIED (3) Headache Assessment/Plan: likelly secondary to covid infection. tylenol prn. Code(s): R51 - HEADACHE Medically cleared for dc to home with home isolation x 14 days Minutes to complete discharge: 45 Discharge Summary Problems reviewed: Yes Reason For Visit: SUSPECTED 2019 NOVEL CORONAVIRUS INFECTION,ACUTE Current Active Problems COVID-19 (Acute) DVT prophylaxis (Acute) Fever (Acute) Gastroenteritis due to COVID-19 virus (Acute) Headache (Acute) Myalgia (Acute) Pneumonia due to COVID-19 virus (Acute) Prophylactic measure (Acute) Suspected 2019 novel coronavirus infection (Acute) Thrombocytopenia (Acute) Condition: Improved - Instructions Diet, Activity, Other Instructions: YOUR VISIT You came to the hospital because were short of breath and have fever and cough. You tested positive for COVID-19 the marcial virus. MEDICATIONS Please continue to take your home medications as prescribed. There was no changes to your home medications. NEW MEDICATIONS START to take zinc oxide 220mg once daily for 1 month START to take ascorbic acid 500mg once a day for 1 month START to take Vitamin D3 for 1 month We have called your medications into [facility] DIET Continue your home diet ADDITIONAL CARE Please make an appointment to see your primary care provider, 2 week from today. Please call 911 or come directly to the emergency department if you experience unusual headache, vision change, shortness of breath, chest pain, numbness, tingling, loss of alertness/awareness, loss of function, unusual bleeding or any alarming symptoms. Thank you for allowing me to care for you. Glenn Sanabria, JERMAINE, [facility] [phone] Referrals: Ashley Pillai [Primary Care Provider] - Disposition: HOME - Home Medications Comprehensive Discharge Medication List: Ambulatory Orders Zolpidem Tartrate [Ambien] 5 mg PO HS 02/26/20 Ascorbic Acid [Vitamin C -] 1,000 mg PO BID #60 tablet 02/27/20 Zinc Sulfate [Orazinc -] 220 mg PO BID #60 capsule 02/27/20 Apixaban [Eliquis -] 5 mg PO BID #28 tablet 02/28/20 Problem List - Problems (1) Prophylactic measure Code(s): Z29.9 - ENCOUNTER FOR PROPHYLACTIC MEASURES, UNSPECIFIED (2) COVID-19 Code(s): U07.1 - COVID POSITIVE (3) Gastroenteritis due to COVID-19 virus Code(s): U07.1 - COVID POSITIVE; A08.39 - OTHER VIRAL ENTERITIS (4) Thrombocytopenia Code(s): D69.6 - THROMBOCYTOPENIA, UNSPECIFIED This patient is new to me today: Yes Date on this admission: 02/28/20 Emergency Visit: Yes ED Registration Date: 02/24/20 Care time: The patient presented to the Emergency Department on the above date and was hospitalized for further evaluation of their emergent condition. Critical Care patient: No - Discharge Referral Referred to [facility] Med P.C.: No
[2020-02-29] MEDS ORDERED: CHOLECALCIFEROL (VIT D3) 1,000 UNIT (25 MCG) TABLET PO SCH (10:00)
== END 2020-02-28 17:30 | disposition home or self-care (01) | DRG 137 ==
LOC: JER 19:11 → JERBED 23:21 → J4S 02-25 03:33
PROVIDERS: ADMIT Internal Medicine; ATTEND Nurse Practitioner Acute Care
DX: U07.1 COVID-19 (principal); R51 Headache; M79.10 Myalgia, unspecified site; R06.03 Acute respiratory distress; R79.1 Abnormal coagulation profile; R09.02 Hypoxemia; J12.89 Other viral pneumonia; R19.7 Diarrhea, unspecified; D50.9 Iron deficiency anemia, unspecified; A08.39 Other viral enteritis; D69.6 Thrombocytopenia, unspecified
CPT/HCPCS: 36415; 70450-TC; 71045-TC-FY; 71250-TC; 80048; 80053; 81003; 82272; 82550; 82728; 82930; 83540; 83550; 83615; 83735; 84100; 84466; 84484; 84703; 85025; 85027; 85379; 85610; 85730; 86140; 86618; 87040; 87045; 87046; 87086; 87205; 87207; 87324; 87449; 87798; 87899; 93005; 93010; 94761; 99285-25; J0131; Q0162; U0003

== ENCOUNTER 2024-01-19 18:30 | Emergency (ER) | payer OTHER ==
[2024-01-19 18:49] VITALS: BP 124/81; PULSE 69; RESP 18; TEMP 98.1; BMI 28.4
[2024-01-19] MEDS ORDERED: ACETAMINOPHEN 325 MG TABLET (FP) ONE (19:40)
[2024-01-19] MEDS ORDERED: KETOROLAC TROMETHAMINE 30 MG/1 ML VIAL ONE (19:40)
[2024-01-19] MEDS: ACETAMINOPHEN 325 MG TABLET (FP) PO ONE (19:50)
[2024-01-19] MEDS: KETOROLAC TROMETHAMINE 30 MG/1 ML VIAL IM ONE (19:50)
== END 2024-01-19 21:53 | disposition home or self-care (01) ==
LOC: JERFT 18:30 → JER 18:30
PROC: 3E0233Z Introduction of Anti-inflammatory into Muscle, Percutaneous Approach (ICD-10-PCS; principal; 2024-01-19)
DX: S99.912A Unspecified injury of left ankle, initial encounter (principal); W18.39XA Other fall on same level, initial encounter; X50.1XXA Overexertion from prolonged static or awkward postures, initial encounter
CPT/HCPCS: 73610-TC-LT-FY; 73630-TC-LT; 96372; 99284-25